=== PATIENT | male | born 2000 ===

== ENCOUNTER 2020-06-18 19:14 | Emergency (ER) | payer OTHER ==
[~2020-06-18] VITALS: Ht 180.3 cm; Wt 86.4 kg
[2020-06-18] MEDS ORDERED: NORCO 325 MG-51 TAB PO (20:48)
[2020-06-18] MEDS ORDERED: CEPHALEXIN500 M1 PO (20:48)
[2020-06-18 21:15] VITALS: BP 135/84; PULSE 100; TEMP 97.8
== END 2020-06-18 21:15 | disposition home or self-care (01) ==
LOC: COL.ER 19:14
DX: S92.411A Displaced fracture of proximal phalanx of right great toe, initial encounter for closed fracture (principal); S91.211A Laceration without foreign body of right great toe with damage to nail, initial encounter; F17.290 Nicotine dependence, other tobacco product, uncomplicated; W20.8XXA Other cause of strike by thrown, projected or falling object, initial encounter
CPT/HCPCS: L4386